=== PATIENT | female | born 1970 | race Caucasian/White ===

== ENCOUNTER 2017-03-31 17:06 | Emergency (ER) | payer SELFPAY ==
[2017-03-31 17:38] LABS: Hemoglobin 8.5 gm/dl (10.1-14.3); Mean Corpuscular HGB Conc 31 % (30-34); Platelet Count 281 K/mm3 (140-440); Red Blood Count 4.62 M/mm3 (3.65-5.03); White Blood Count 5.5 K/mm3 (4.5-11.0)
[2017-03-31 17:39] LABS: Mean Corpuscular Hemoglobin 19 pg (28-32); Mean Corpuscular Volume 61 fl (79-97); Red Cell Distribution Width 20.1 % (13.2-15.2)
[2017-03-31 17:56] LABS: Anion Gap 18 mmol/L; Blood Urea Nitrogen 12 mg/dL (7-17); Calcium 8.1 mg/dL (8.4-10.2); Carbon Dioxide 21 mmol/L (22-30); Chloride 106.9 mmol/L (98-107); Glucose 95 mg/dL (65-100); Potassium 4.4 mmol/L (3.6-5.0); Sodium 141 mmol/L (137-145)
[2017-03-31 19:11] LABS: Bacteria,Urine 1+ /HPF (Negative); Bilirubin,Urine NEG (Negative); Blood,Urine SM (Negative); Ketones,Urine NEG (Negative); Leukocyte Esterase,Urine TR (Negative); Mucus,Urine FEW /HPF; Nitrite,Urine NEG (Negative); RBC,Urine < 1.0 /HPF (0.0-6.0); Urobilinogen,Urine < 2.0 mg/dL (<2.0)
[2017-03-31 20:02] LABS: Alanine Aminotransferase 12 units/L (7-56); Albumin 3.8 g/dL (3.9-5); Albumin/Globulin Ratio 0.9 %; Alkaline Phosphatase 96 units/L (35-129); Total Protein 8.1 g/dL (6.3-8.2)
[2017-03-31 20:07] LABS: Bilirubin,Direct < 0.2 mg/dL (0-0.2)
[2017-04-01] MEDS ORDERED: NORCO 5/325 PO ONE (02:46)
[2017-04-01] MEDS ORDERED: MOTRIN PO ONE (02:46)
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
[2017-04-01 03:48] VITALS: BP 116/60
--- NOTE | 2017-04-01 09:18 | XRay Report ---
Left ankle 3 views: History: Pain. Findings: The talar tibial and the subtalar joint appears unremarkable. Arthritic changes are noted in the naviculocuneiform joint dorsally. There is a large spur identified at the posterior inferior aspect of calcaneus with a small spur posterior superior aspect. No fracture. No subluxation or dislocation. Impression: Spur calcaneal. No articular abnormality at talotibial joint. Mild arthritic changes in the naviculocuneiform joint dorsally.
== END 2017-04-01 03:50 | disposition home or self-care (01) ==
LOC: ED 17:06
DX: M25.572 Pain in left ankle and joints of left foot (principal); M25.571 Pain in right ankle and joints of right foot; D50.9 Iron deficiency anemia, unspecified
CPT/HCPCS: 36415; 80048; 80074; 81001; 85027; 99284

== ENCOUNTER 2019-02-28 22:57 | Emergency (ER) | payer SELFPAY ==
--- NOTE | 2019-02-28 23:18 | Emergency Department Report ---
ED Headache HPI - General Stated Complaint: HEADACHE, DIZZY Time Seen by Provider: 02/28/19 23:13 Source: patient, family Exam Limitations: language barrier - History of Present Illness Initial Comments: Patient is a 47-year-old female presents emergency room with complaints of headache and dizziness. Patient states she was cleaning a bathroom at work and inhaled bleach fumes and instantly became dizzy with a headache. Patient states that all of her symptoms have resolved. Patient states she wants to be checked out. Patient states her headache is better since leaving the bathroom and resting. Patient states her dizziness is better with rest. Timing/Duration: 1/2 hour Quality: moderate Head Injury Location: global Recent Head Trauma: no recent headache/trauma Associated Symptoms: denies: confusion, fatigue, facial pain, fever/chills, flushing, loss of consciousness, nausea/vomiting, nasal congestion, nasal drainage, numbness in legs/feet, rash, seizures, sinus infection, stiff neck, vision changes, weakness Allergies/Adverse Reactions: Allergies No Known Allergies Allergy (Unverified 03/31/17 17:18) Home Medications: Ambulatory Orders No Known Home Medications [No Reported Home Medications] 03/01/19 ED Review of Systems ROS: Stated complaint: HEADACHE, DIZZY Other details as noted in HPI Constitutional: denies: chills, fever Eyes: denies: eye pain, eye discharge, vision change ENT: denies: ear pain, throat pain Respiratory: denies: cough, shortness of breath, wheezing Cardiovascular: denies: chest pain, palpitations Endocrine: no symptoms reported Gastrointestinal: denies: abdominal pain, nausea, diarrhea Genitourinary: denies: urgency, dysuria, discharge Musculoskeletal: denies: back pain, joint swelling, arthralgia Skin: denies: rash, lesions Neurological: headache. denies: weakness, paresthesias Psychiatric: denies: anxiety, depression Hematological/Lymphatic: denies: easy bleeding, easy bruising ED Past Medical Hx - Past Medical History Previous Medical History?: No - Surgical History Past Surgical History?: No - Family History Family history: no significant - Social History Smoking Status: Never Smoker Substance Use Type: None - Medications Home Medications: Home Medications Medication Instructions Recorded Confirmed Last Taken Type No Known Home Medications [No 03/01/19 03/01/19 Unknown History Reported Home Medications] ED Physical Exam - General Limitations: Language Barrier General appearance: alert, in no apparent distress - Head Head exam: Present: atraumatic, normocephalic - Eye Eye exam: Present: normal appearance, PERRL Pupils: Present: normal accommodation - ENT ENT exam: Present: mucous membranes moist - Neck Neck exam: Present: normal inspection - Respiratory Respiratory exam: Present: normal lung sounds bilaterally. Absent: respiratory distress, wheezes, rales, rhonchi, stridor - Cardiovascular Cardiovascular Exam: Present: regular rate, normal rhythm. Absent: systolic murmur, diastolic murmur, rubs, gallop - GI/Abdominal GI/Abdominal exam: Present: soft, normal bowel sounds - Extremities Exam Extremities exam: Present: normal inspection - Back Exam Back exam: Present: normal inspection - Neurological Exam Neurological exam: Present: alert, oriented X3 - Psychiatric Psychiatric exam: Present: normal affect, normal mood - Skin Skin exam: Present: warm, dry, intact, normal color. Absent: rash ED Course Vital Signs 02/28/19 02/28/19 23:18 23:31 Temperature 97.7 F Pulse Rate 75 Respiratory 17 16 Rate Blood Pressure 108/57 O2 Sat by Pulse 97 99 Oximetry - Reevaluation(s) Reevaluation #1: Patient states she feels better. Patient denies headache and dizziness. Patient ambulatory in the ER. I discussed all results the patient. I discussed plan of care outpatient. Patient stable at discharge. Patient will be discharged home. Patient given discharge instructions. Patient was understanding of discharge instructions 03/01/19 00:46 ED Medical Decision Making - Lab Data Result diagrams: 02/28/19 23:22 02/28/19 23:22 - Medical Decision Making Patient's 47-year-old female that presents for after inhaling bleach fumes. Patient states once she removed herself from the environment her headache and symptoms improved. Patient states due to her symptoms she came to ER to be evaluated and checked out. Patient states her symptoms have improved and resolved. Patient never had any chest pain or difficulties breathing or shortness of breath. Patient's labs were done and were unremarkable. Patient was given IV fluids. - Differential Diagnosis dizziness. Exposure to fumes. Headache. Critical care attestation.: If time is entered above; I have spent that time in minutes in the direct care of this critically ill patient, excluding procedure time. ED Disposition Clinical Impression: Exposure to industrial fumes, Dizziness Headache Qualifiers: Headache type: unspecified Headache chronicity pattern: acute headache Intractability: not intractable Qualified Code(s): R51 - Headache Disposition: DC- TO HOME OR SELFCARE Is pt being admited?: No Does the pt Need Aspirin: No Condition: Stable Instructions: Acute Headache (ED), Vertigo (ED), Dizziness (ED), Lightheadedness (ED) Additional Instructions: Patient to follow up with primary care in 2-3 days. Patient to avoid work and strenuous activity until cleared by primary care. Patient to rest. Patient to increase water. Patient take Tylenol or ibuprofen when necessary for pain. Time of Disposition: 00:51
[2019-02-28 23:46] LABS: Hematocrit 40.7 % (30.3-42.9); Hemoglobin 13.9 gm/dl (10.1-14.3); Mean Corpuscular HGB Conc 34 % (30-34); Mean Corpuscular Volume 92 fl (79-97); Platelet Count 252 K/mm3 (140-440); Red Blood Count 4.44 M/mm3 (3.65-5.03); Red Cell Distribution Width 14.6 % (13.2-15.2)
[2019-03-01] MEDS ORDERED: NACL 0.9% 1000 ML 1,000 ML IV ONE (00:04)
[2019-03-01 00:08] LABS: Alanine Aminotransferase 25 units/L (7-56); BUN/Creatinine Ratio 17; Blood Urea Nitrogen 10 mg/dL (7-17); Calcium 8.6 mg/dL (8.4-10.2); Hemolysis Index 13
[2019-03-01 01:34] VITALS: BP 119/65
== END 2019-03-01 01:29 | disposition home or self-care (01) ==
LOC: ED 22:57
DX: R42 Dizziness and giddiness (principal); R51 Headache; Z77.098 Contact with and (suspected) exposure to other hazardous, chiefly nonmedicinal, chemicals
CPT/HCPCS: 36415; 80053; 85027; 96360; 99283; J7030